=== PATIENT | female | born 1975 | race Caucasian/White ===

== ENCOUNTER → 2018-06-20 09:01 | Day surgery (SDC) | payer BC ==
[~2018-06-20 09:01] MED LIST: Acetaminophen TAB* 325 MG ONE; Acetaminophen TAB* 325 MG PO PRN; Buffered Lidocaine 0.9% SYRIN* 5 ML/SYR SYRINGE INTRADERM ONE; Bupivacaine 0.5% PF 10 ML VIAL INJ ONE; Dexamethasone IV* 4 MG/ML 1 ML (4 MG) ONE; DiMENhydriNATE IV* 50 MG/ML VIAL IV PUSH PRN; Famotidine IV* 10 MG/ML 2 ML (20 mg) ONE; Gabapentin CAP(*) 300 MG ONE; Gabapentin CAP(*) 300 MG PO ONE; HYDROcodone/ACETAMIN 5-325 MG* 1 TAB ONE; HYDROcodone/ACETAMIN 5-325 MG* 1 TAB PO PRN; HYDROmorphone INJ* 0.5 MG/0.5 ML SYRINGE IV PRN; Ketorolac INJ* 30 MG/ML 1 ML VIAL ONE; Levalbuterol 0.63MG/3ML NEB* UNIT OF USE INH ONE; Levalbuterol 0.63MG/3ML NEB* UNIT OF USE INH PRN; Lidocaine 2% PF * 5 ML VIAL ONE; Meperidine Carpuject* 75 MG/ML CARPUJECT SYRINGE IV ONE; Midazolam* 1 MG/ML 2 ML VIAL (2 MG) ONE; Mivacurium Chloride* 20 MG/10 ML VIAL IV ONE; Nalbuphine* 10 MG/ML 1 ML VIAL IV PRN; Naloxone* 0.4 MG/ML 1 ML VIAL IV PRN; Ondansetron INJ* 2 MG/ML VIAL IV PRN; Ondansetron INJ* 2 MG/ML VIAL ONE; PROCHLORPERAZINE INJ 5 MG/ML 2 ML VIAL IV PRN; Propofol* 10 MG/ML 20 ML BTL IV PUSH ONE; Scopolamine 1.5 mg* PATCH TRANSDERM PRN; Scopolamine PATCH Remove* 1 NOTE MISC PATCH OFF ONE; ceFOXitin 2 GM IVPREMIX* 2 GM/50 ML BAG ONE; diPHENhydraMINE IV* 50 MG/ML 1 ml VIAL (BENADRYL) IV PRN; fentaNYL* 50 MCG/ML 2 ML VIAL (100 MCG VIAL) IV PRN; fentaNYL* 50 MCG/ML 2 ML VIAL (100 MCG VIAL) ONE
[2018-06-20] MEDS: Acetaminophen TAB* 325 MG PO ONE ×2 (09:23→14:03)
[2018-06-20 09:51] LABS: Hematocrit 40 % (35-47); Hemoglobin 13.7 g/dl (12.0-16.0); Mean Corpuscular HGB Conc 34 g/dl (31-36); Mean Corpuscular Hemoglobin 29 pg (27-31); Mean Corpuscular Volume 84 fL (80-97); Mean Platelet Volume 9.6 um3 (7.4-10.4); Platelet Count 232 10^3/ul (150-450); Red Blood Count 4.79 10^6/ul (4.00-5.40); Red Cell Distribution Width 13 % (10.5-15); White Blood Count 6.5 10^3/ul (3.5-10.8)
[2018-06-20 15:25] VITALS: BP 118/69
--- NOTE | 2018-06-21 01:28 | OP ---
OPERATIVE REPORT: DATE OF OPERATION: 06/20/18 DATE OF : 79 SURGEON: Janey Davis MD BOBBIN HANDLER: Francois Henry MD ANESTHESIOLOGIST: Lulú Rutherford MD ANESTHESIA: General endotracheal anesthesia. PRE-OP DIAGNOSIS: Bilateral ovarian cysts. POST-OP DIAGNOSES: Bilateral ovarian cysts, extensive endometriosis and scarring in the pelvis. OPERATIVE PROCEDURE: Laparoscopic right oophorectomy, left ovarian cystectomy, and extensive lysis of adhesions. FINDINGS: Midline uterus, bilateral large ovarian cysts with extensive scarring. The ovaries were scarred together in the midline in the cul-de-sac. There were bowel adhesions to the right ovary and fallopian tube and extensive adhesions of the bowel and ovaries to the posterior surface of the uterus. There was chocolate cystic fluid from both the right and left ovarian cysts. The fallopian tube on the right appeared markedly dilated and the fallopian tube on the left was very adherent to the left ovary. ESTIMATED BLOOD LOSS: Approximately 50 cc. SPECIMENS: 1. Right tube and ovary. 2. Portion of left ovarian cyst wall. FLUIDS: Per Anesthesia. DRAINS: Trevizo catheter. URINE OUTPUT: 250 cc clear urine. COMPLICATIONS: None. COUNTS: Sponge, lap, and needle count correct x2. CONDITION: The patient was brought to recovery room awake and in stable condition. DESCRIPTION OF PROCEDURE: The patient was brought to the operating room. When general anesthesia was found to be adequate, a Trevizo catheter was placed under sterile conditions. The patient was prepped and draped in the usual sterile fashion in the dorsal supine position. Time-out was performed. A 10-mm skin incision was made in the infraumbilical fold. The incision was carried down to the underlying layer of fascia. The fascia was grasped, elevated and incised in the midline. The peritoneum was entered bluntly and the Iris trocar was placed. The abdomen was insufflated. A 5-mm incision was made approximately 2 cm above the symphysis pubis and a 5-mm trocar and sleeve were placed under direct visualization. 5mm skin incisions were made in the right and left lower quadrants and 5-mm trocars were placed in the right lower quadrant and in the left lower quadrant under direct visualization. The abdomen and pelvis were examined with the above findings noted. Dr. Henry lysed the adhesions in order for us to be able to visualize the left ovary and tube and then performed extensive lysis of adhesions so that we could visualize the right ovary and fallopian tube. When the anatomy was able to be visualized, using the LigaSure , we came across the right infundibulopelvic ligament and along the uterus and excised the right ovary and fallopian tube. These were placed in an Endobag and sent to Pathology. The ureter was visualized on the right side after the ovary and fallopian tube were excised. Attention was then turned to the patient 's left ovary. There was another large chocolate cyst on the left side. This opened during the lysis of adhesions. A portion of the cyst wall was removed and sent to Pathology. We irrigated extensively. There was no active bleeding. The appendix appeared normal. The liver edge appeared normal. The 5 -mm ports were removed under direct visualization. The laparoscope was removed from the infraumbilical fold. The infraumbilical fascia was closed using 0 Vicryl. No defect was palpated. The skin was closed in a subcuticular fashion with 4-0 Monocryl. Steri-Strips were applied, 4x4s were applied. The Trevizo catheter was removed. 250 cc of clear urine was noted. The patient was brought to the recovery room awake and in stable condition. [id number]/[id number] #: [id number] ELIZABETH
--- NOTE | 2018-06-21 01:37 | OP ---
CC: Janey Davis MD* OPERATIVE REPORT: DATE OF OPERATION: 06/20/18 - [facility] DATE OF : 79 SURGEON: Francois Henry MD CO-SURGEON: Janey Davis MD ANESTHESIOLOGIST: Dr. Rutherford. ANESTHESIA: General endotracheal. PRE-OP DIAGNOSIS: Pelvis adhesions. POST-OP DIAGNOSIS: Pelvis adhesions. OPERATIVE PROCEDURE: Laparoscopic lysis of adhesions. ESTIMATED BLOOD LOSS: As per Dr. Davis's note. INTRAVENOUS FLUIDS: Crystalloids. SPECIMENS: No specimens for this portion of the procedure. DRAINS: None. COMPLICATIONS: None. OPERATIVE INDICATIONS: This is a 42-year-old female with bilateral ovarian cysts, who was brought to the operating room by Dr. Davis for laparoscopic left ovarian cystectomy and right salpingo-oophorectomy. During the procedure after Dr. Davis had obtained pneumoperitoneum and adequate visualization of the pelvis with placement of lower midline trocar, extensive adhesions of the uterus and adnexa to the anterior rectum/sigmoid colon were identified and therefore, General Surgical intraoperative consultation was necessary to perform the adhesiolysis. DESCRIPTION OF PROCEDURE: Midline of the uterus posteriorly and right and left adnexa seemed to be adherent to the anterior rectum at the rectosigmoid junction. Additional two 5 mm ports were placed, one in the right lower quadrant and one in left lower quadrant. Atraumatic bowel graspers were used to grasp the sigmoid colon and then sharp dissection was performed to free the rectosigmoid from the posterior uterus and what turned out to be the right and left adnexa. There was a cyst encountered in the left side that drained chocolate fluid that was aspirated and then this made the dissection easier on the left side and additional cyst was noted directly posterior to the uterus slightly to the right of midline and this was ruptured containing clear fluid as the dissection proceeded in caudad. The proper plane between the rectum and uterus was difficult to identify, but dissection stayed toward the uterus in order to avoid any inadvertent injury to the rectum. After completing adequate adhesiolysis, the procedure was then turned over to Dr. Davis. This is dictated separately. [id number] #: [id number] MTDD
== END | disposition home or self-care (01) ==
LOC: OR 09:01
PROVIDERS: ATTEND Obstetrics & Gynecology
DX: N83.12 Corpus luteum cyst of left ovary (principal); N83.201 Unspecified ovarian cyst, right side; N73.6 Female pelvic peritoneal adhesions (postinfective); J45.909 Unspecified asthma, uncomplicated; F41.8 Other specified anxiety disorders
CPT/HCPCS: 36415; 81025; 85027; 86850; 86900; 86901; 88305; A9270-GY; J0694; J1100; J1885; J2175; J2250; J2405; J2704; J3010